=== PATIENT | female | born 1935 | race Caucasian/White ===

== ENCOUNTER → 2017-08-04 | Outpatient (CLI) | payer MEDICARE, BC ==
[~2017-08-04] MED LIST: ALEVE220 MG PO; ASACOL HD800 MG PO; ASPIRIN LO-DOSE81 MG PO; CITRACAL+D(315M1 TAB PO; COLACE100 MG PO; CYMBALTA30 MG PO; IMITREX50 MG PO; MIRALAX17 GM PO; MONTELUKAST SOD10 MG PO; MULTI VITAMIN1 EACH PO; NADOLOL40 MG PO; NEURONTIN100 MG PO; NEXIUM40 MG PO; NORCO 5-325 TA1 EACH PO; OMNICEF 300MG300 MG PO; PRAMIPEXOLE DI0.5 MG PO; PROLIA60 MG/ML; SUMATRIPTAN20 MG NOSE; TRIMETHOPRIM100 MG PO; TYLENOL325 MG PO; VITAMIN D-32000 UNI1 PO; VOLTAREN 1% GE100 GM TOP; XARELTO10 MG PO
== END ==
LOC: GBCOE 10:47
DX: Z12.31 Encounter for screening mammogram for malignant neoplasm of breast (principal)
CPT/HCPCS: G0202